=== PATIENT | male | born 1975 | race Caucasian/White ===

== ENCOUNTER 2023-06-15 06:27 | Day surgery (SDC) | payer OTHER ==
[2023-06-11 14:25] VITALS: BMI 35.9
[2023-06-15] MEDS ORDERED: PROPOFOL 80 ML ONE (08:07)
[2023-06-15] MEDS ORDERED: Midazolam HCl 2 mg/2 ml Vial ONE (08:07)
[2023-06-15] MEDS ORDERED: Lidocaine 4% PF 5 ML AMP ONE (08:18)
[2023-06-15] MEDS ORDERED: PROPOFOL 100 ML ONE (09:20)
== END 2023-06-15 10:09 | disposition home or self-care (01) ==
LOC: CSHSDC 06:27
PROVIDERS: ATTEND Internal Medicine Gastroenterology
PROC: 0DBN8ZZ Excision of Sigmoid Colon, Via Natural or Artificial Opening Endoscopic (ICD-10-PCS; principal; 2023-06-15)
PROC: 0DB68ZX Excision of Stomach, Via Natural or Artificial Opening Endoscopic, Diagnostic (ICD-10-PCS; principal; 2023-06-15)
DX: Z12.11 Encounter for screening for malignant neoplasm of colon (principal); K63.5 Polyp of colon; K64.8 Other hemorrhoids; K31.89 Other diseases of stomach and duodenum; K29.50 Unspecified chronic gastritis without bleeding; K21.01 Gastro-esophageal reflux disease with esophagitis, with bleeding; I10 Essential (primary) hypertension; E11.9 Type 2 diabetes mellitus without complications; E21.3 Hyperparathyroidism, unspecified; F90.9 Attention-deficit hyperactivity disorder, unspecified type; F31.9 Bipolar disorder, unspecified
CPT/HCPCS: 88305; 88342; J2250; J2704